=== PATIENT | female | born 1985 | race African-American/Black ===

== ENCOUNTER 2021-09-07 07:31 | Inpatient (IN) | payer OTHER ==
[~2021-09-07] VITALS: Ht 170.2 cm; Wt 75.7 kg
[2021-09-07] VITALS (22 sets, daily range): BP systolic 99–152; BP diastolic 52–104
[2021-09-07] MEDS ORDERED: PRENTAB9 PO (08:09)
[2021-09-07] MEDS ORDERED: HOME MED LIST COMPLETE! XX SCH (08:10)
[2021-09-07] MEDS ORDERED: OXYTOCIN DRIP 30 UNITS in IV 1 EA IV PRN (09:00)
[2021-09-07] MEDS ORDERED: LIDOCAINE 1% MDV 20ML VIAL INFIL PRN (09:00)
[2021-09-07 09:51] LABS: HEMATOCRIT 28.7 % (36.0-47.0); HEMOGLOBIN 10.2 g/dl (12.0-15.5); MEAN CORPUSCULAR HEMOGLOBIN 34.8 pg (27.0-33.0); MEAN CORPUSCULAR HGB CONC 35.5 g/dl (32.0-36.5); PLATELET COUNT, AUTOMATED 156 10^3/uL (150-450); RED BLOOD COUNT 2.93 10^6/uL (4.00-5.40)
[2021-09-07] MEDS ORDERED: miSOPROStol 50MCG 1/2 TABLET PV ONE (10:20)
[2021-09-07] MEDS ORDERED: miSOPROStol 50MCG 1/2 TABLET SL ONE (11:40)
[2021-09-07] MEDS ORDERED: LR 1,000 ML IV SCH ×2 (14:25→21:20)
[2021-09-07] MEDS ORDERED: LACTATED RINGER'S 1000 ML IV ONE (14:25)
[2021-09-07] MEDS ORDERED: FENTANYL 2MCG/ML ROPIVACAINE 0.2% IN 0.9% NACL 100ML IVBAG As Ordered ONE (17:47)
[2021-09-07] MEDS ORDERED: ePHEDrine SULFATE 25 MG/5 ML(5MG/ML) SYRINGE IVP PRN (18:40)
[2021-09-07] MEDS ORDERED: FENTANYL/ROPIVACAINE/NACL BAG 100 ML EPIDURAL SCH (18:40)
[2021-09-07] MEDS ORDERED: LR 500 ML IV PRN (18:40)
[2021-09-07] MEDS ORDERED: EPIDURAL/PCA KEYS XX PRN (18:40)
[2021-09-07] MEDS ORDERED: ONDANSETRON 4MG 2ML VIAL IV PRN ×2 (18:40→21:20)
[2021-09-07] MEDS ORDERED: NALOXONE INJ 0.4MG/1ML VIAL (J2310 PER 1MG) IV PRN (18:40)
[2021-09-07] MEDS ORDERED: diphenhydrAMINE 50MG/ML VIAL (J1200) IV PRN (18:40)
[2021-09-07 20:34] LABS: CORD GAS ABE V -5.5; CORD GAS HCO3 V 20.2 MEQ/L; CORD GAS O2 SAT V 89.6 %; CORD GAS PCO2 V 40.1 mmHg; CORD GAS PH V 7.32 UNITS; CORD GAS PO2 V 45.8 mmHg; CORD GAS SBC V 19.8 MEQ/L; CORD GAS TCO2 V 21.4 MEQ/L
[2021-09-07 20:35] LABS: CORD GAS HCO3 A 19.4 MEQ/L; CORD GAS O2 SAT A 91.9 %; CORD GAS PCO2 A 42.4 mmHg; CORD GAS PH A 7.279 UNITS; CORD GAS PO2 A 52.5 mmHg; CORD GAS SBC A 18.7 MEQ/L; CORD GAS TCO2 A 20.7 MEQ/L
[2021-09-07] MEDS ORDERED: OXYTOCIN 30 UNITS IN 0.9% NaCl 500ML IV BAG (J2590) As Ordered ONE (21:11)
[2021-09-07] MEDS ORDERED: DOCUSATE SODIUM 100MG CAPSULE PO PRN (21:20)
[2021-09-07] MEDS ORDERED: OXYTOCIN DRIP 30 UNITS in IV 1 EA IV SCH ×6 (21:20)
[2021-09-07] MEDS ORDERED: RHOGAM 300 MCG (1500 IU) INJ (J2790) IM SCH (21:20)
[2021-09-07] MEDS ORDERED: DIBUCAINE 1% OINTMENT 30GM TOP PRN (21:20)
[2021-09-07] MEDS ORDERED: PROMETHAZINE 25 MG TAB PO PRN (21:20)
[2021-09-07] MEDS: ACETAMINOPHEN 500 MG TAB PO SCH (22:03)
[2021-09-07] MEDS: IBUPROFEN 800 MG TAB PO SCH (23:41)
[2021-09-08] MEDS: ACETAMINOPHEN 500 MG TAB PO SCH ×4 (03:22→22:00)
[2021-09-08 05:56] VITALS: BP 102/59
[2021-09-08] MEDS: IBUPROFEN 800 MG TAB PO SCH ×3 (06:17→22:01)
[2021-09-08 07:25] LABS: HEMATOCRIT 23.6 % (36.0-47.0); HEMOGLOBIN 8.5 g/dl (12.0-15.5); MEAN CORPUSCULAR HEMOGLOBIN 34.8 pg (27.0-33.0); MEAN CORPUSCULAR VOLUME 96.7 fl (80.0-96.0); PLATELET COUNT, AUTOMATED 132 10^3/uL (150-450); RED BLOOD COUNT 2.44 10^6/uL (4.00-5.40); WHITE BLOOD COUNT 17.3 10^3/uL (4.0-10.0)
[2021-09-08] MEDS: PRENATAL VITAMINS CHEWABLE TABLET PO SCH (08:57)
[2021-09-08] MEDS ORDERED: PRENATAL VITAMINS CHEWABLE TABLET PO SCH (09:00)
[2021-09-08 18:21] VITALS: BP 109/70
[2021-09-09] MEDS: ACETAMINOPHEN 500 MG TAB PO SCH ×2 (04:06→09:08)
[2021-09-09 06:00] VITALS: BP 108/59
[2021-09-09] MEDS: IBUPROFEN 800 MG TAB PO SCH (06:21)
[2021-09-09] MEDS ORDERED: MEASLES,MUMPS,RUBELLA VACCINE INJ (MMR-II) (90707) SC.IMMUN ONE (09:00)
[2021-09-09] MEDS: PRENATAL VITAMINS CHEWABLE TABLET PO SCH (09:08)
[2021-09-09] MEDS ORDERED: COLA100C5 PO (13:17)
[2021-09-09] MEDS ORDERED: ACET-683 PO (13:17)
[2021-09-09] MEDS ORDERED: IBUP80TA PO (13:17)
== END 2021-09-09 14:10 | disposition home or self-care (01) | DRG 807 ==
LOC: M LDO 07:31 → M LDI 07:43 → M OBS 22:45
PROVIDERS: ADMIT Registered Nurse; ATTEND Obstetrics & Gynecology
PROC: 10E0XZZ Delivery of Products of Conception, External Approach (ICD-10-PCS; principal; 2021-09-07)
PROC: 0KQM0ZZ Repair Perineum Muscle, Open Approach (ICD-10-PCS; 2021-09-07)
PROC: 3E0P7GC Introduction of Other Therapeutic Substance into Female Reproductive, Via Natural or Artificial Opening (ICD-10-PCS; 2021-09-07)
PROC: 10907ZC Drainage of Amniotic Fluid, Therapeutic from Products of Conception, Via Natural or Artificial Opening (ICD-10-PCS; 2021-09-07)
DX: O76 Abnormality in fetal heart rate and rhythm complicating labor and delivery (principal); Z37.0 Single live birth; O70.1 Second degree perineal laceration during delivery; Z3A.39 39 weeks gestation of pregnancy